=== PATIENT | female | born 1935 | race Caucasian/White ===

== ENCOUNTER 2017-06-17 10:50 | Emergency (ER) | payer OTHER ==
[~2017-06-17] VITALS: Ht 157.5 cm; Wt 72.0 kg
[~2017-06-17 10:50] MED LIST: ATOR80TA PO; FURO1TAB93 PO; LEVO88TA21 PO; MAGN500T4 PO; OMEP20CA5 PO; PLAV75TA PO; POTA-267 PO
[2017-06-17 11:05] VITALS: BP 163/90; PULSE 101; RESP 20; TEMP 98; O2SAT 18
[2017-06-17 11:08] VITALS: RESP 20; O2SAT 97
[2017-06-17] MEDS ORDERED: methylPREDNISolone SOD SUCC 125 MG/2 ML VIAL IVP ONE (11:30)
[2017-06-17] MEDS ORDERED: OMEP20TA PO (11:35)
[2017-06-17] MEDS ORDERED: SIMV80TA PO (11:35)
[2017-06-17] MEDS ORDERED: LEVO75TA3 PO (11:35)
[2017-06-17] MEDS ORDERED: FISH1000 PO (11:35)
[2017-06-17] MEDS: RESP: ALBUTEROL 2.5 MG/IPRATROPIUM 0.5 MG NEB (SCH) INH ×2 (11:35→11:36)
[2017-06-17] MEDS ORDERED: POTA-243 PO (11:35)
[2017-06-17] MEDS ORDERED: CALC600T64 PO (11:35)
--- NOTE | 2017-06-17 11:35 | PD ---
HPI Chief Complaint: Respiratory Symptoms Time Seen by Provider: 11:15 Travel History International Travel<30 days: No Contact w/Intl Traveler<30days: No Traveled to known affect area: No History of Present Illness HPI Patient is an 82-year-old female with history of COPD, hyperlipidemia, diabetes , TIAs currently on Xarelto, presents to the ER with complaints of shortness of breath. Patient reports that for the past week, she's been short of breath at rest as well as exertion. Patient reports that she tried taking her albuterol treatments with minimal relief of symptoms. She denies any fevers or chills. Reports that she has had a nonproductive cough. Patient denies chest pain at this time. Patient denies any sick contacts, denies any recent travels or trips. PFSH Past Medical History Arthritis: Yes Depression: Yes Cardiovascular Problems: Yes (AK x 1) High Cholesterol: Yes Chest Pain: Yes Congestive Heart Failure: No (???) COPD: Yes Cerebrovascular Accident: Yes (tia's) Diabetes: Yes (states hx of this but no at present ) Patient Takes Glucophage: No Diminished Hearing: Yes GERD: Yes Medical other: Yes (chronic neck,back and right arm) Respiratory: Yes (copd) Myocardial Infarction: Yes (x1) Thyroid Disease: Yes Tetanus Vaccination: > 5 Years Influenza Vaccination: No ?: Not Menopausal: Yes Past Surgical History Appendectomy: Yes Hysterectomy: Yes Tonsillectomy: Yes Social History Alcohol Use: Yes (occas beer) Tobacco Use: No Substance Use: No Allergies-Medications (Allergen,Severity, Reaction): Coded Allergies: aspirin (Unverified Allergy, Severe, HIVES, 06/17/17) Reported Meds & Prescriptions Reported Meds & Active Scripts Active Proair Hfa 8.5 GM Inh (Albuterol Sulfate) 90 Mcg/Act Aer 2 Puff INH Q4-6H PRN 108 mcg/actuation Prednisone 20 Mg Tab 20 Mg PO BID 5 Days Reported Advair Diskus Inh (Fluticasone-Salmeterol Inh) 100-50 Mcg/Blist Aer 1 Puff INH BID Rinse mouth after use. Xarelto (Rivaroxaban) 20 Mg Tab 20 Mg PO DAILY Fish Oil ([place]-3 Fatty Acids) 1,000 Mg Cap 1 Cap PO DAILY Calcium 600 + Vit D Tablet (Calcium Carbonate/Vitamin D3) 1 Each Tablet 1 Tab PO DAILY Simvastatin 80 Mg Tab 80 Mg PO DAILY Omeprazole 20 Mg Tab 20 Mg PO DAILY Levothyroxine (Levothyroxine Sodium) 75 Mcg Tab 75 Mcg PO DAILY Klor-Con 10 (Potassium Chloride) Unknown Strength Tab Unknown Dose PO DAILY Review of Systems General / Constitutional: No: Fever, Chills Eyes: No: Visual changes HENT: No: Headaches, Vertigo, Lightheadedness, Sore Throat Cardiovascular: No: Chest Pain or Discomfort, Palpitations, Irregular Rhythm, Tachycardia, Diaphoresis Respiratory: Positive: Cough, Shortness of Breath, No: Wheezing Gastrointestinal: No: Abdominal Pain Genitourinary: No: Dysuria Musculoskeletal: No: Pain Skin: No Rash Neurologic: No: Weakness, Dizziness, Headache Psychiatric: No: Depression Endocrine: No: Polydipsia Hematologic/Lymphatic: No: Easy Bruising Physical Exam Narrative GENERAL: No acute distress, nontoxic SKIN: Focused skin assessment warm/dry. HEAD: Atraumatic. Normocephalic. EYES: Pupils equal and round. No scleral icterus. No injection or drainage. ENT: No nasal bleeding or discharge. Mucous membranes pink and moist. NECK: Trachea midline. No JVD. CARDIOVASCULAR: irregular rate and rhythm. No murmur appreciated. RESPIRATORY: No accessory muscle use. Clear to auscultation. Breath sounds equal bilaterally. GASTROINTESTINAL: Abdomen soft, non-tender, nondistended. Hepatic and splenic margins not palpable. MUSCULOSKELETAL: No obvious deformities. No clubbing. No cyanosis. No edema. NEUROLOGICAL: Awake and alert. No obvious cranial nerve deficits. Motor grossly within normal limits. Normal speech. PSYCHIATRIC: Appropriate mood and affect; insight and judgment normal. Data Data Last Documented VS Vital Signs Date Time Temp Pulse Resp B/P Pulse Ox O2 Delivery O2 Flow Rate FiO2 06/17/17 13:02 73 18 96 Room Air 06/17/17 12:10 150/75 06/17/17 11:05 98.0 Orders Complete Blood Count With Diff (06/17/17 11:28) Comprehensive Metabolic Panel (06/17/17 11:28) B-Type Natriuretic Peptide (06/17/17 11:28) Act Partial Throm Time (Ptt) (06/17/17 11:28) Prothrombin Time / Inr (Pt) (06/17/17 11:28) Magnesium (Mg) (06/17/17 11:28) Ckmb (Isoenzyme) Profile (06/17/17 11:28) Troponin I (06/17/17 11:28) Urinalysis - C+S If Indicated (06/17/17 11:28) Iv Access Insert/Monitor (06/17/17 11:28) Ecg Monitoring (06/17/17 11:28) Oximetry (06/17/17 11:28) Chest, Single Ap (06/17/17 11:28) Sodium Chloride 0.9% Flush (Ns Flush) (06/17/17 11:30) Methylprednisolone So Succ Inj (Solumedr (06/17/17 11:30) Albuterol-Ipratropium Neb (Duoneb Neb) (06/17/17 11:30) CKMB (06/17/17 12:00) CKMB% (06/17/17 12:00) Furosemide Inj (Lasix Inj) (06/17/17 13:30) Labs Laboratory Tests Test 06/17/17 06/17/17 12:00 12:50 White Blood Count 8.8 TH/MM3 Red Blood Count 3.55 MIL/MM3 Hemoglobin 11.8 GM/DL Hematocrit 34.6 % Mean Corpuscular Volume 97.2 FL Mean Corpuscular Hemoglobin 33.1 PG Mean Corpuscular Hemoglobin 34.1 % Concent Red Cell Distribution Width 14.3 % Platelet Count 206 TH/MM3 Mean Platelet Volume 7.5 FL Neutrophils (%) (Auto) 75.7 % Lymphocytes (%) (Auto) 11.3 % Monocytes (%) (Auto) 11.1 % Eosinophils (%) (Auto) 1.6 % Basophils (%) (Auto) 0.3 % Neutrophils # (Auto) 6.7 TH/MM3 Lymphocytes # (Auto) 1.0 TH/MM3 Monocytes # (Auto) 1.0 TH/MM3 Eosinophils # (Auto) 0.1 TH/MM3 Basophils # (Auto) 0.0 TH/MM3 CBC Comment DIFF FINAL Differential Comment Prothrombin Time 12.0 SEC Prothromb Time International 1.1 RATIO Ratio Activated Partial 28.9 SEC Thromboplast Time Sodium Level 135 MEQ/L Potassium Level 5.5 MEQ/L Chloride Level 100 MEQ/L Carbon Dioxide Level 28.1 MEQ/L Anion Gap 7 MEQ/L Blood Urea Nitrogen 16 MG/DL Creatinine 0.85 MG/DL Estimat Glomerular Filtration 64 ML/MIN Rate Random Glucose 131 MG/DL Calcium Level 9.5 MG/DL Magnesium Level 2.0 MG/DL Total Bilirubin 0.8 MG/DL Aspartate Amino Transf 51 U/L (AST/SGOT) Alanine Aminotransferase 32 U/L (ALT/SGPT) Alkaline Phosphatase 70 U/L Total Creatine Kinase 170 U/L Creatine Kinase MB 2.8 NG/ML Troponin I LESS THAN 0.02 NG/ML B-Type Natriuretic Peptide 160 PG/ML Total Protein 7.4 GM/DL Albumin 3.7 GM/DL Urine Collection Type CLEAN CATCH Urine Color YELLOW Urine Turbidity CLEAR Urine pH 6.5 Urine Specific [place] 1.010 Urine Protein TRACE mg/dL Urine Glucose (UA) NEG mg/dL Urine Ketones NEG mg/dL Urine Occult Blood SMALL Urine Nitrite NEG Urine Bilirubin NEG Urine Leukocyte Esterase NEG Urine RBC 4-9 /hpf Urine Squamous Epithelial 0-5 /hpf Cells Microscopic Urinalysis Comment CULT NOT INDICATED Urine Collection Time 12:50 [facility] Medical Decision Making Medical Screen Exam Complete: Yes Emergency Medical Condition: Yes Interpretation(s) EKG at 1109: Afib at 105bpm, qt/qtc: 347/408, no acute st or t wave changes Vital Signs Date Time Temp Pulse Resp B/P Pulse Ox O2 Delivery O2 Flow Rate FiO2 06/17/17 11:14 100 20 96 Room Air 06/17/17 11:05 98.0 101 20 163/90 18 Differential Diagnosis Differential includes ACS, arrhythmia, PE, COPD exacerbation, pneumonia, electrolyte abnormality, viral syndrome Narrative Course Patient is an 82-year-old female who presents to emergency room complaints of shortness of breath for the past week. She does have history of TIAs, COPD's, AK x 1, reports that she has been sob at rest as well as on exertion for the past week. She tried using her neb treatments with no relief of symptoms. VSS in the ER. Patient with no chest pain at this time - ekg shows afib at 105bpm. Patient was placed on a bus driver/monitor upon arrival to the emergency room. Lab work including x-ray chest as well as neb treatment ordered. Vital Signs Date Time Temp Pulse Resp B/P Pulse Ox O2 Delivery O2 Flow Rate FiO2 06/17/17 13:02 73 18 96 Room Air 06/17/17 12:10 70 18 150/75 96 Room Air 06/17/17 11:14 100 20 96 Room Air 06/17/17 11:08 20 97 Room Air 06/17/17 11:05 98.0 101 20 163/90 18 Laboratory Tests Test 06/17/17 06/17/17 12:00 12:50 White Blood Count 8.8 TH/MM3 (4.0-11.0) Red Blood Count 3.55 MIL/MM3 (4.00-5.30) Hemoglobin 11.8 GM/DL (11.6-15.3) Hematocrit 34.6 % (35.0-46.0) Mean Corpuscular Volume 97.2 FL (80.0-100.0) Mean Corpuscular Hemoglobin 33.1 PG (27.0-34.0) Mean Corpuscular Hemoglobin 34.1 % Concent (32.0-36.0) Red Cell Distribution Width 14.3 % (11.6-17.2) Platelet Count 206 TH/MM3 (150-450) Mean Platelet Volume 7.5 FL (7.0-11.0) Neutrophils (%) (Auto) 75.7 % (16.0-70.0) Lymphocytes (%) (Auto) 11.3 % (9.0-44.0) Monocytes (%) (Auto) 11.1 % (0.0-8.0) Eosinophils (%) (Auto) 1.6 % (0.0-4.0) Basophils (%) (Auto) 0.3 % (0.0-2.0) Neutrophils # (Auto) 6.7 TH/MM3 (1.8-7.7) Lymphocytes # (Auto) 1.0 TH/MM3 (1.0-4.8) Monocytes # (Auto) 1.0 TH/MM3 (0-0.9) Eosinophils # (Auto) 0.1 TH/MM3 (0-0.4) Basophils # (Auto) 0.0 TH/MM3 (0-0.2) CBC Comment DIFF FINAL Differential Comment Prothrombin Time 12.0 SEC (9.8-11.6) Prothromb Time International 1.1 RATIO Ratio Activated Partial 28.9 SEC Thromboplast Time (24.3-30.1) Sodium Level 135 MEQ/L (136-145) Potassium Level 5.5 MEQ/L (3.5-5.1) Chloride Level 100 MEQ/L (98-107) Carbon Dioxide Level 28.1 MEQ/L (21.0-32.0) Anion Gap 7 MEQ/L (5-15) Blood Urea Nitrogen 16 MG/DL (7-18) Creatinine 0.85 MG/DL (0.50-1.00) Estimat Glomerular Filtration 64 ML/MIN (>89) Rate Random Glucose 131 MG/DL (74-106) Calcium Level 9.5 MG/DL (8.5-10.1) Magnesium Level 2.0 MG/DL (1.5-2.5) Total Bilirubin 0.8 MG/DL (0.2-1.0) Aspartate Amino Transf 51 U/L (15-37) (AST/SGOT) Alanine Aminotransferase 32 U/L (10-53) (ALT/SGPT) Alkaline Phosphatase 70 U/L (45-117) Total Creatine Kinase 170 U/L (26-192) Creatine Kinase MB 2.8 NG/ML (0.5-3.6) Troponin I LESS THAN 0.02 NG/ML (0.02-0.05) B-Type Natriuretic Peptide 160 PG/ML (0-100) Total Protein 7.4 GM/DL (6.4-8.2) Albumin 3.7 GM/DL (3.4-5.0) Urine Collection Type CLEAN CATCH Urine Color YELLOW (YELLW/STRAW) Urine Turbidity CLEAR (CLEAR) Urine pH 6.5 (5.0-8.5) Urine Specific [place] 1.010 (1.002-1.035) Urine Protein TRACE mg/dL (NEG-TRACE) Urine Glucose (UA) NEG mg/dL (NEG) Urine Ketones NEG mg/dL (NEG) Urine Occult Blood SMALL (NEG) Urine Nitrite NEG (NEG) Urine Bilirubin NEG (NEG) Urine Leukocyte Esterase NEG (NEG) Urine RBC 4-9 /hpf (0-3) Urine Squamous Epithelial 0-5 /hpf (0-5) Cells Microscopic Urinalysis Comment CULT NOT INDICATED Urine Collection Time 12:50 Last Impressions Chest X-Ray 06/17/17 1128 Signed Impressions: Service Date/Time: Saturday, June 17, 2017 11:53 - CONCLUSION: 1. Cardiomegaly, small right effusion and interstitial prominence suggesting congestive failure. This is new compared to previous. Al Sadler MD Labs reviewed, WBC 8.8, hemoglobin 11.8, hematocrit 34.6, platelets 206 Sodium 135, potassium 5.5, BUN 16, creatinine 0.85, glucose 131, AST 51, ALT 32 , alkaline phosphatase 70, troponin less than 0.02, BNP 160 X-ray of the chest shows cardiomegaly with small right effusion and some prominence of CHF Patient has received IV solumedrol as well as 2 DuoNeb's, patient reports that she is feeling much better and has complete resolution of symptoms. She reports that she was able to walk to the bathroom without any shortness of breath. Patient requests to be discharged at this time. I reviewed all labs and all studies with patient in detail. Signs and symptoms of when to return to the emergency room was reviewed with her in detail. She is to continue all of her medications as prescribed as outpatient. She will follow up with her primary care doctor and will return to ER as needed. Diagnosis Primary Impression: COPD exacerbation Patient Instructions: General Instructions Additional Instructions: Please follow up with your primary care doctor Return to ER if symptoms worsen or progress Return to ER as needed Please take all medications as prescribed Med/Other Pt SpecificInfo: Prescription(s) given Scripts Albuterol 8.5 GM Inh (Proair Hfa 8.5 GM Inh)90 Mcg/Act Aer2 Puff INH Q4-6H PRN ( SHORTNESS OF BREATH) #1 INHALER Ref 0 108 mcg/actuation Prov:Soni Singh DO 06/17/17 Prednisone 20 Mg Tab20 Mg PO BID 5 Days Ref 0 Prov:Soni Singh DO 06/17/17 Disposition: 01 DISCHARGE HOME Condition: Stable Soni Singh DO Jun 17, 2017 11:34
[2017-06-17] MEDS ORDERED: XARE20TA PO (11:37)
[2017-06-17] MEDS ORDERED: ADVA100A INH (11:38)
--- NOTE | 2017-06-17 12:08 | RADRPT ---
EXAM DATE/TIME: 06/17/2017 11:53 [facility] COMPARISON: CHEST SINGLE AP, November 22, 2015, 0:01. INDICATIONS : Short of breath. MEDICAL HISTORY : Myocardial infarction. Gastroesophageal reflux disease. Hypercholesterolemia. COPD. Thyroid disea se. TIA. CHF, Arthritis. SURGICAL HISTORY : Tonsillectomy. Appendectomy. Hysterectomy. ENCOUNTER: Initial ACUITY: 1 week PAIN SCORE: 0/10 LOCATION: chest FINDINGS: The examination demonstrates a heart to be mildly enlarged. There is a small right basilar effusion a nd diffuse interstitial prominence. The exam would suggest mild congestive failure. These findings ar e new compared to the previous dated 11/22/15. There degenerative changes in the a.c. joints bilaterally. The osseous structures are otherwise intac t. CONCLUSION: 1. Cardiomegaly, small right effusion and interstitial prominence suggesting congestive failure. This is new compared to previous. Al Sadler MD on June 17, 2017 at 12:05 Board Certified Radiologist. This report was verified electronically.
[2017-06-17 12:10] VITALS: BP 150/75; PULSE 70; RESP 18; O2SAT 96
[2017-06-17 12:10] LABS: AUTOMATED NEUTROPHIL # 6.7 TH/MM3 (1.8-7.7); BASOPHIL % 0.3 % (0.0-2.0); EOSINOPHIL # 0.1 TH/MM3 (0-0.4); EOSINOPHIL % 1.6 % (0.0-4.0); HEMATOCRIT 34.6 % (35.0-46.0); HEMO FLAGS DIFF FINAL; LYMPH % 11.3 % (9.0-44.0); MEAN CELL VOLUME 97.2 FL (80.0-100.0); MEAN CORPUSCULAR HEMOGLOBIN 33.1 PG (27.0-34.0); MEAN CORPUSCULAR HGB CONC 34.1 % (32.0-36.0); MONO % 11.1 % (0.0-8.0); NEUT % 75.7 % (16.0-70.0); PLATELET COUNT 206 TH/MM3 (150-450); RED BLOOD COUNT 3.55 MIL/MM3 (4.00-5.30); RED CELL DISTRIBUTION WIDTH 14.3 % (11.6-17.2); WHITE BLOOD COUNT 8.8 TH/MM3 (4.0-11.0)
[2017-06-17 12:21] LABS: CHLORIDE 100 MEQ/L (98-107); POTASSIUM 5.5 MEQ/L (3.5-5.1); SODIUM (NA) 135 MEQ/L (136-145)
[2017-06-17] MEDS: SODIUM CHLORIDE 0.9% FLUSH 10 ML FLUSH IVF PRN ×2 (12:21→13:33)
[2017-06-17 12:25] LABS: APTT (PATIENT) 28.9 SEC (24.3-30.1); INTERNATIONAL NORMALIZED RATIO 1.1 RATIO
[2017-06-17 12:28] LABS: ANION GAP 7 MEQ/L (5-15); BICARBONATE 28.1 MEQ/L (21.0-32.0)
[2017-06-17 12:29] LABS: BLOOD UREA NITROGEN 16 MG/DL (7-18)
[2017-06-17 12:31] LABS: AST (GOT) 51 U/L (15-37)
[2017-06-17 12:32] LABS: ALT (GPT) 32 U/L (10-53); GLOMERULAR FILTRATION RATE 64 ML/MIN (>89); TOTAL BILIRUBIN ADULT 0.8 MG/DL (0.2-1.0)
[2017-06-17 12:34] LABS: ALKALINE PHOSPHATASE 70 U/L (45-117); CREATINE KINASE 170 U/L (26-192)
[2017-06-17 12:46] LABS: CKMB 2.8 NG/ML (0.5-3.6)
[2017-06-17 12:58] LABS: BLOOD, URINE SMALL (NEG); GLUCOSE,URINE NEG (NEG); KETONE, URINE NEG (NEG); NITRITE,URINE NEG (NEG); PH, URINE 6.5 (5.0-8.5)
[2017-06-17 13:04] LABS: COMMENT (UR) CULT NOT INDICATED; CULTURE IF INDICATED CULT NOT INDICATED; METHOD OF COLLECTION CLEAN CATCH; SQUAMOUS EPITHELIAL CELL URINE 0-5 /hpf (0-5); URINE COLOR YELLOW (YELLW/STRAW)
[2017-06-17] MEDS ORDERED: FUROSEMIDE 40 MG/4 ML VIAL IV PUSH ONE (13:30)
[2017-06-17] MEDS ORDERED: PRED20 PO (13:40)
[2017-06-17] MEDS ORDERED: ALBUAER3 INH (13:40)
[2017-06-17 13:50] VITALS: BP 147/73
--- NOTE | 2017-06-19 09:15 | EKG ---
Date Performed: 06/17/2017 Time Performed: 11:09:49 PTAGE: 82 years EKG: ATRIAL FLUTTER/TACHYCARDIA WITH RAPID VENTRICULAR RESPONSE LOW QRS VOLTAGE IN PRECORDIAL LE ADS ABNORMAL RHYTHM ECG INTERPRETATION BASED ON A DEFAULT AGE OF 40 YEARS Compared to the PREVIOUS TRACING from 11/22/15, previously in sinus tachycardia DOCTOR: Hossein Long Interpretating Date/Time 06/19/2017 09:05:23
== END 2017-06-17 13:57 | disposition home or self-care (01) ==
LOC: PHED 10:50
DX: J44.1 Chronic obstructive pulmonary disease with (acute) exacerbation (principal); I51.7 Cardiomegaly; H91.90 Unspecified hearing loss, unspecified ear; K21.9 Gastro-esophageal reflux disease without esophagitis; I25.2 Old myocardial infarction; E78.5 Hyperlipidemia, unspecified; E11.9 Type 2 diabetes mellitus without complications; Z86.73 Personal history of transient ischemic attack (TIA), and cerebral infarction without residual deficits; R00.0 Tachycardia, unspecified
CPT/HCPCS: 71010; 80053; 81001; 82550; 82552; 83735; 83880; 84484; 85025; 85610; 85730; 93005; 94640; 94664; 96374; 96375; 99285; J1940; J2930

== ENCOUNTER 2017-11-12 11:19 | Emergency (ER) | payer OTHER ==
[~2017-11-12] VITALS: Ht 157.5 cm; Wt 66.0 kg
[~2017-11-12 11:19] MED LIST changes: +ADVA100A INH; +ALBUAER3 INH; -ATOR80TA PO; +CALC600T64 PO; +FISH1000 PO; -FURO1TAB93 PO; +KLOR10TA PO; +LEVO75TA3 PO; -LEVO88TA21 PO; -MAGN500T4 PO; -OMEP20CA5 PO; +OMEP20TA93 PO; -PLAV75TA PO; -POTA-267 PO; +PRED20 PO; +SIMV80TA PO; +XARE20TA PO
[2017-11-12 11:25] VITALS: BP 133/82; PULSE 80; RESP 14; TEMP 97.8; O2SAT 94
--- NOTE | 2017-11-12 11:42 | PD ---
HPI Chief Complaint: General Weakness Time Seen by Provider: 11:30 Travel History International Travel<30 days: No Contact w/Intl Traveler<30days: No Traveled to known affect area: No History of Present Illness HPI The patient was seen and examined in the presence of the nurse. This patient complains of bilateral leg weakness and leg pain. These seem to be chronic symptoms she's had for years. She's had a wheelchair at home for the last 3-4 years. She also has a walker. She always needs a walker to help get to a standing position and then sometime she can walk short distances without it and other times days the walker. She has fibromyalgia. She denies acute injury. No specific muscle group weakness. It's more generalized. Denies speech slurring or confusion or headache. Severity is moderate. No alleviating factors. No exacerbating factors. Duration is years but symptoms seem to wax and wane in terms of her pains and weakness PFSH Past Medical History Arthritis: Yes Depression: Yes Cardiovascular Problems: Yes ([place] x 1) High Cholesterol: Yes Chest Pain: Yes Congestive Heart Failure: No (???) COPD: Yes Cerebrovascular Accident: Yes (tia's) Diabetes: Yes Patient Takes Glucophage: No Diminished Hearing: Yes GERD: Yes Respiratory: Yes (copd) Myocardial Infarction: Yes (x1) Thyroid Disease: Yes Tetanus Vaccination: > 5 Years Influenza Vaccination: No ?: Not Menopausal: Yes Past Surgical History Appendectomy: Yes Hysterectomy: Yes Tonsillectomy: Yes Social History Alcohol Use: Yes ("Couple beers" daily) Tobacco Use: No Substance Use: No Allergies-Medications (Allergen,Severity, Reaction): Coded Allergies: aspirin (Unverified Allergy, Severe, HIVES, 11/12/17) Reported Meds & Prescriptions Reported Meds & Active Scripts Active Proair Hfa 8.5 GM Inh (Albuterol Sulfate) 90 Mcg/Act Aer 2 Puff INH Q4-6H PRN 108 mcg/actuation Reported Gabapentin 100 Mg Cap 100 Mg PO HS Lyrica (Pregabalin) 50 Mg Cap 50 Mg PO DIRECTED Tramadol (Tramadol HCl) 50 Mg Tab 50 Mg PO BID PRN Sertraline (Sertraline HCl) 25 Mg Tab 25 Mg PO DAILY Lipitor (Atorvastatin Calcium) 80 Mg Tab 80 Mg PO HS Indomethacin 25 Mg Cap 25 Mg PO DIRECTED Take with food, milk, or antacids to decrease stomach adverse effects. Advair Diskus Inh (Fluticasone-Salmeterol Inh) 100-50 Mcg/Blist Aer 1 Puff INH BID PRN Rinse mouth after use. Xarelto (Rivaroxaban) 20 Mg Tab 20 Mg PO DAILY Omeprazole 20 Mg Tab 20 Mg PO DAILY Levothyroxine (Levothyroxine Sodium) 75 Mcg Tab 50 Mcg PO DAILY Review of Systems General / Constitutional: No: Fever Eyes: No: Visual changes HENT: No: Headaches Cardiovascular: No: Chest Pain or Discomfort Respiratory: No: Shortness of Breath Gastrointestinal: No: Abdominal Pain Genitourinary: No: Dysuria Musculoskeletal: Positive: Myalgias, Arthralgias, Weakness, Cramping, No: Pain Skin: No Rash Neurologic: Positive: Weakness Psychiatric: No: Depression Endocrine: No: Polydipsia Hematologic/Lymphatic: No: Easy Bruising Physical Exam Narrative GENERAL: Elderly well-developed patient in no apparent distress. SKIN: Focused skin assessment reveals no rash and nodules. Skin is Warm and dry. HEAD: Atraumatic. Normocephalic. EYES: Pupils equal and round. No scleral icterus. No injection or drainage. ENT: No nasal bleeding or discharge. Mucous membranes pink and moist. NECK: Trachea midline. No JVD. CARDIOVASCULAR: Regular rate and rhythm. No murmur appreciated. RESPIRATORY: No accessory muscle use. Clear to auscultation. Breath sounds equal bilaterally. GASTROINTESTINAL: Abdomen soft, non-tender, nondistended. Hepatic and splenic margins not palpable. MUSCULOSKELETAL: No obvious deformities. No clubbing. No cyanosis. No edema. NEUROLOGICAL: Awake and alert. No obvious cranial nerve deficits. Motor grossly within normal limits. Normal speech. PSYCHIATRIC: Appropriate mood and affect; insight and judgment normal. Data Data Last Documented VS Vital Signs Date Time Temp Pulse Resp B/P (MAP) Pulse Ox O2 Delivery O2 Flow Rate FiO2 11/12/17 11:25 97.8 80 14 133/82 (99) 94 Orders Orders Iv Access Insert/Monitor (11/12/17 11:39) Complete Blood Count With Diff (11/12/17 11:39) Comprehensive Metabolic Panel (11/12/17 11:39) Urinalysis - C+S If Indicated (11/12/17 11:39) Thyroid Stimulating Hormone (11/12/17 11:39) Cath For Specimen (11/12/17 11:39) Labs Laboratory Tests Test 11/12/17 11:50 11/12/17 11:55 White Blood Count 9.3 TH/MM3 Red Blood Count 4.43 MIL/MM3 Hemoglobin 13.4 GM/DL Hematocrit 41.8 % Mean Corpuscular Volume 94.5 FL Mean Corpuscular Hemoglobin 30.4 PG Mean Corpuscular Hemoglobin Concent 32.1 % Red Cell Distribution Width 15.4 % Platelet Count 218 TH/MM3 Mean Platelet Volume 6.7 FL Neutrophils (%) (Auto) 77.8 % Lymphocytes (%) (Auto) 8.9 % Monocytes (%) (Auto) 12.3 % Eosinophils (%) (Auto) 0.7 % Basophils (%) (Auto) 0.3 % Neutrophils # (Auto) 7.3 TH/MM3 Lymphocytes # (Auto) 0.8 TH/MM3 Monocytes # (Auto) 1.1 TH/MM3 Eosinophils # (Auto) 0.1 TH/MM3 Basophils # (Auto) 0.0 TH/MM3 CBC Comment DIFF FINAL Differential Comment Blood Urea Nitrogen 23 MG/DL Creatinine 1.10 MG/DL Random Glucose 161 MG/DL Total Protein 7.2 GM/DL Albumin 3.8 GM/DL Calcium Level 9.8 MG/DL Alkaline Phosphatase 59 U/L Aspartate Amino Transf (AST/SGOT) 43 U/L Alanine Aminotransferase (ALT/SGPT) 39 U/L Total Bilirubin 1.0 MG/DL Sodium Level 130 MEQ/L Potassium Level 3.3 MEQ/L Chloride Level 92 MEQ/L Carbon Dioxide Level 30.7 MEQ/L Anion Gap 7 MEQ/L Estimat Glomerular Filtration Rate 48 ML/MIN Thyroid Stimulating Hormone 3rd Gen 1.690 uIU/ML Urine Collection Type CLEAN CATCH Urine Color YELLOW Urine Turbidity SLIGHT Urine pH 6.0 Urine Specific [place] 1.020 Urine Protein 100 mg/dL Urine Glucose (UA) NEG mg/dL Urine Ketones TRACE mg/dL Urine Occult Blood MOD Urine Nitrite NEG Urine Bilirubin NEG Urine Leukocyte Esterase NEG Urine RBC 10-14 /hpf Urine WBC 0-2 /hpf Urine Squamous Epithelial Cells 0-5 /hpf Urine Amorphous Sediment FEW Urine Bacteria OCC /hpf Urine Hyaline Casts 25-49 /lpf Microscopic Urinalysis Comment CULT NOT INDICATED Urine Collection Time 11:55 [facility] Medical Decision Making Medical Screen Exam Complete: Yes Emergency Medical Condition: Yes Medical Record Reviewed: Yes Differential Diagnosis Electrolyte abnormality, UTI, fibromyalgia, depression, hypothyroid Narrative Course I have reviewed the patient's electronic medical record. Reviewed her prior lab record. She's had a sodium of 129 in 2016 IV placed CBC is normal metabolic profile shows mild hyponatremia and mild hypokalemia. LFT's are normal Catheterized urine shows no pyuria. There is a scant number of RBCs and some hyaline casts I don't see a neurologic deficit. No clinical suspicion of CVA or TIA. Is chronically deconditioned and with weakness and pains. Has never had good gait. Uses both a walker and wheelchair at times for the last 4 years. I don't see any indication for emergent hospitalization. This seems like a flare of a chronic problem. Think she can follow-up with her primary physician. There is no neurologic deficit or concern for CVA. Symptoms seem more generalized. She denies back pain or back problems. Diagnosis Primary Impression: Generalized weakness Additional Instructions: The patient was advised to follow up with their physician and return if they worsen. Med/Other Pt SpecificInfo: Other Disposition: 01 DISCHARGE HOME Condition: Stable Marshall Krause MD Nov 12, 2017 11:42
[2017-11-12 11:59] LABS: AUTOMATED NEUTROPHIL # 7.3 TH/MM3 (1.8-7.7); BASOPHIL % 0.3 % (0.0-2.0); EOSINOPHIL # 0.1 TH/MM3 (0-0.4); EOSINOPHIL % 0.7 % (0.0-4.0); HEMATOCRIT 41.8 % (35.0-46.0); HEMOGLOBIN 13.4 GM/DL (11.6-15.3); LYMPH % 8.9 % (9.0-44.0); LYMPHOCYTE # 0.8 TH/MM3 (1.0-4.8); MEAN CELL VOLUME 94.5 FL (80.0-100.0); MEAN CORPUSCULAR HEMOGLOBIN 30.4 PG (27.0-34.0); MEAN CORPUSCULAR HGB CONC 32.1 % (32.0-36.0); MEAN PLATELET VOLUME 6.7 FL (7.0-11.0); MONO % 12.3 % (0.0-8.0); MONOCYTE # 1.1 TH/MM3 (0-0.9); NEUT % 77.8 % (16.0-70.0); PLATELET COUNT 218 TH/MM3 (150-450); RED BLOOD COUNT 4.43 MIL/MM3 (4.00-5.30); RED CELL DISTRIBUTION WIDTH 15.4 % (11.6-17.2); WHITE BLOOD COUNT 9.3 TH/MM3 (4.0-11.0)
[2017-11-12 12:03] LABS: BLOOD, URINE MOD (NEG); GLUCOSE,URINE NEG (NEG); KETONE, URINE TRACE mg/dL (NEG); NITRITE,URINE NEG (NEG); URINE LEUKOCYTE ESTERASE NEG (NEG)
[2017-11-12] MEDS ORDERED: SERT25TA83 PO (12:04)
[2017-11-12] MEDS ORDERED: LYRI50CA PO (12:04)
[2017-11-12] MEDS ORDERED: TRAM50TA PO (12:04)
[2017-11-12] MEDS ORDERED: GABA100C4 PO (12:04)
[2017-11-12] MEDS ORDERED: LIPI80TA PO (12:04)
[2017-11-12] MEDS ORDERED: INDO25CA PO (12:04)
[2017-11-12 12:07] LABS: CHLORIDE 92 MEQ/L (98-107); SODIUM (NA) 130 MEQ/L (136-145)
[2017-11-12 12:08] LABS: BILIRUBIN, URINE NEG (NEG)
[2017-11-12 12:09] LABS: URINE COLOR YELLOW (YELLW/STRAW); WBC, URINE 0-2 /hpf (0-5)
[2017-11-12 12:10] LABS: AMORPHOUS SEDIMENT, URINE FEW; BACTERIA, URINE OCC /hpf; SQUAMOUS EPITHELIAL CELL URINE 0-5 /hpf (0-5)
[2017-11-12 12:10] LABS: CALCIUM 9.8 MG/DL (8.5-10.1)
[2017-11-12 12:11] LABS: ALBUMIN 3.8 GM/DL (3.4-5.0); BICARBONATE 30.7 MEQ/L (21.0-32.0); BLOOD UREA NITROGEN 23 MG/DL (7-18); GLUCOSE,RANDOM 161 MG/DL (74-106)
[2017-11-12 12:14] LABS: ALT (GPT) 39 U/L (10-53); AST (GOT) 43 U/L (15-37); GLOMERULAR FILTRATION RATE 48 ML/MIN (>89)
[2017-11-12 12:15] LABS: TOTAL PROTEIN 7.2 GM/DL (6.4-8.2)
[2017-11-12 12:17] LABS: ALKALINE PHOSPHATASE 59 U/L (45-117)
[2017-11-12 13:45] VITALS: BP 178/60; PULSE 82; RESP 14; O2SAT 96
== END 2017-11-12 13:45 | disposition home or self-care (01) ==
LOC: PHED 11:19
DX: R53.1 Weakness (principal); E07.9 Disorder of thyroid, unspecified; E78.00 Pure hypercholesterolemia, unspecified; K21.9 Gastro-esophageal reflux disease without esophagitis; J44.9 Chronic obstructive pulmonary disease, unspecified; I25.2 Old myocardial infarction; M79.7 Fibromyalgia; Z79.01 Long term (current) use of anticoagulants; Z86.73 Personal history of transient ischemic attack (TIA), and cerebral infarction without residual deficits
CPT/HCPCS: 80053; 81001; 84443; 85025; 99283; P9612

== ENCOUNTER 2017-11-14 11:55 | Observation (INO) | payer OTHER ==
[~2017-11-14] VITALS: Ht 167.6 cm; Wt 60.0 kg
[~2017-11-14 11:55] MED LIST changes: -CALC600T64 PO; -FISH1000 PO; +GABA100C4 PO; +INDO25CA PO; -KLOR10TA PO; +LIPI80TA PO; +LYRI50CA PO; -PRED20 PO; +SERT25TA83 PO; -SIMV80TA PO; +TRAM50TA PO
--- NOTE | 2017-11-14 12:13 | PD ---
HPI Chief Complaint: Syncope/Near-Syncope Time Seen by Provider: 12:02 Travel History International Travel<30 days: No Contact w/Intl Traveler<30days: No Traveled to known affect area: No History of Present Illness HPI 82-year-old female presents the emergency department via EMS with reported syncopal episode witnessed by her . Patient has history of generalized weakness and fibromyalgia, and usually uses a walker or wheelchair at home. Reportedly the was trying to get patient up out of her chair, when she had a 2-3 seconds syncopal episode. Patient has had some confusion reported in transport, but denies significant pain, nausea, vomiting, or other constitutional symptoms. She denies headache. At first she felt she was in [place], [place], but now seems oriented. Patient was seen yesterday by Dr. Hutchinson with reports of generalized weakness, without any significant findings. Patient is allergic to aspirin. PFSH Past Medical History Arthritis: Yes Depression: Yes Cardiovascular Problems: Yes ([place] x 1) High Cholesterol: Yes Chest Pain: Yes Congestive Heart Failure: No (???) COPD: Yes Cerebrovascular Accident: Yes (tia's) Diabetes: Yes Diminished Hearing: Yes GERD: Yes Respiratory: Yes (copd) Myocardial Infarction: Yes (x1) Thyroid Disease: Yes Menopausal: Yes Past Surgical History Appendectomy: Yes Hysterectomy: Yes Tonsillectomy: Yes Social History Alcohol Use: Yes ("Couple beers" daily) Tobacco Use: No Substance Use: No Allergies-Medications (Allergen,Severity, Reaction): Coded Allergies: aspirin (Unverified Allergy, Severe, HIVES, 11/12/17) Reported Meds & Prescriptions Reported Meds & Active Scripts Active Proair Hfa 8.5 GM Inh (Albuterol Sulfate) 90 Mcg/Act Aer 2 Puff INH Q4-6H PRN 108 mcg/actuation Reported Gabapentin 100 Mg Cap 100 Mg PO HS Lyrica (Pregabalin) 50 Mg Cap 50 Mg PO DIRECTED Tramadol (Tramadol HCl) 50 Mg Tab 50 Mg PO BID PRN Sertraline (Sertraline HCl) 25 Mg Tab 25 Mg PO DAILY Lipitor (Atorvastatin Calcium) 80 Mg Tab 80 Mg PO HS Indomethacin 25 Mg Cap 25 Mg PO DIRECTED Take with food, milk, or antacids to decrease stomach adverse effects. Advair Diskus Inh (Fluticasone-Salmeterol Inh) 100-50 Mcg/Blist Aer 1 Puff INH BID PRN Rinse mouth after use. Xarelto (Rivaroxaban) 20 Mg Tab 20 Mg PO DAILY Omeprazole 20 Mg Tab 20 Mg PO DAILY Levothyroxine (Levothyroxine Sodium) 75 Mcg Tab 50 Mcg PO DAILY Review of Systems Except as stated in HPI: all other systems reviewed are Neg General / Constitutional: No: Fever Eyes: No: Visual changes HENT: No: Headaches Cardiovascular: No: Chest Pain or Discomfort Respiratory: No: Shortness of Breath Gastrointestinal: No: Abdominal Pain Genitourinary: No: Dysuria Musculoskeletal: Positive: Weakness (generalized), No: Myalgias, Arthralgias, Limited ROM, Pain Skin: No Rash Neurologic: No: Weakness Psychiatric: No: Depression Endocrine: No: Polydipsia Hematologic/Lymphatic: No: Easy Bruising Physical Exam Narrative GENERAL: Patient appears in no obvious distress. She is alert and oriented 3. SKIN: Warm and dry. Normal color. Normal turgor. No rash. HEAD: Atraumatic. Normocephalic. EYES: Pupils equal and round. No scleral icterus. No injection or drainage. ENT: No nasal bleeding or discharge. Mucous membranes pink and moist. Pharynx is clear. Airway is patent. NECK: Trachea midline. No JVD. CARDIOVASCULAR: Tachycardic rate and irregular rhythm. RESPIRATORY: No accessory muscle use. Clear to auscultation. Breath sounds equal bilaterally. GASTROINTESTINAL: Abdomen soft, non-tender, nondistended. Hepatic and splenic margins not palpable. MUSCULOSKELETAL: Extremities without clubbing, cyanosis, or edema. No obvious deformities. NEUROLOGICAL: Awake and alert. No obvious cranial nerve deficits. Motor grossly within normal limits. Five out of 5 muscle strength in the arms and legs. Normal speech. PSYCHIATRIC: Appropriate mood and affect; insight and judgment normal. Data Data Last Documented VS Vital Signs Date Time Temp Pulse Resp B/P (MAP) Pulse Ox O2 Delivery O2 Flow Rate FiO2 11/14/17 12:51 99 18 129/63 (85) 99 18 137/69 (91) 11/14/17 12:27 99 Room Air 11/14/17 12:27 97.5 Orders Orders Electrocardiogram (11/14/17 12:04) Complete Blood Count With Diff (11/14/17 12:04) Comprehensive Metabolic Panel (11/14/17 12:04) Magnesium (Mg) (11/14/17 12:04) Ckmb (Isoenzyme) Profile (11/14/17 12:04) Troponin I (11/14/17 12:04) Act Partial Throm Time (Ptt) (11/14/17 12:04) Prothrombin Time / Inr (Pt) (11/14/17 12:04) Urinalysis - C+S If Indicated (11/14/17 12:04) Chest, Single Ap (11/14/17 12:04) Ct Brain W/O Iv Contrast(Rout) (11/14/17 12:04) Ecg Monitoring (11/14/17 12:04) Iv Access Insert/Monitor (11/14/17 12:04) Oximetry (11/14/17 12:04) Sodium Chloride 0.9% Flush (Ns Flush) (11/14/17 12:15) Orthostatic Vital Signs (11/14/17 12:04) Sodium Chlorid 0.9% 500 Ml Inj (Ns 500 M (11/14/17 12:15) Cath For Specimen (11/14/17 12:04) Potassium Chloride (Kcl) (11/14/17 13:30) CKMB (11/14/17 12:24) CKMB% (11/14/17 12:24) Labs Laboratory Tests Test 11/14/17 12:24 11/14/17 13:12 White Blood Count 11.3 TH/MM3 Red Blood Count 4.53 MIL/MM3 Hemoglobin 14.4 GM/DL Hematocrit 43.1 % Mean Corpuscular Volume 95.1 FL Mean Corpuscular Hemoglobin 31.8 PG Mean Corpuscular Hemoglobin Concent 33.4 % Red Cell Distribution Width 16.1 % Platelet Count 225 TH/MM3 Mean Platelet Volume 7.6 FL Neutrophils (%) (Auto) 76.9 % Lymphocytes (%) (Auto) 10.3 % Monocytes (%) (Auto) 11.5 % Eosinophils (%) (Auto) 1.0 % Basophils (%) (Auto) 0.3 % Neutrophils # (Auto) 8.7 TH/MM3 Lymphocytes # (Auto) 1.2 TH/MM3 Monocytes # (Auto) 1.3 TH/MM3 Eosinophils # (Auto) 0.1 TH/MM3 Basophils # (Auto) 0.0 TH/MM3 CBC Comment DIFF FINAL Differential Comment Prothrombin Time 11.3 SEC Prothromb Time International Ratio 1.1 RATIO Activated Partial Thromboplast Time 24.8 SEC Blood Urea Nitrogen 17 MG/DL Creatinine 1.09 MG/DL Random Glucose 152 MG/DL Total Protein 7.8 GM/DL Albumin 4.1 GM/DL Calcium Level 9.9 MG/DL Magnesium Level 1.8 MG/DL Alkaline Phosphatase 65 U/L Aspartate Amino Transf (AST/SGOT) 33 U/L Alanine Aminotransferase (ALT/SGPT) 36 U/L Total Bilirubin 0.9 MG/DL Sodium Level 134 MEQ/L Potassium Level 3.2 MEQ/L Chloride Level 94 MEQ/L Carbon Dioxide Level 28.2 MEQ/L Anion Gap 12 MEQ/L Estimat Glomerular Filtration Rate 48 ML/MIN Total Creatine Kinase 150 U/L Creatine Kinase MB 2.4 NG/ML Troponin I LESS THAN 0.02 NG/ML Urine Color YELLOW Urine Turbidity CLEAR Urine pH 7.5 Urine Specific [place] 1.008 Urine Protein 30 mg/dL Urine Glucose (UA) NEG mg/dL Urine Ketones 10 mg/dL Urine Occult Blood NEG Urine Nitrite NEG Urine Bilirubin NEG Urine Urobilinogen LESS THAN 2.0 MG/DL Urine Leukocyte Esterase NEG Urine RBC 2 /hpf Urine WBC 1 /hpf Urine Squamous Epithelial Cells 1 /hpf Urine Hyaline Casts 3 /lpf Urine Mucus FEW /lpf Microscopic Urinalysis Comment CATH-CULT NOT IND MDM Medical Decision Making Medical Screen Exam Complete: Yes Emergency Medical Condition: Yes Medical Record Reviewed: Yes Differential Diagnosis Syncopal episode. Generalized weakness. Electrolyte imbalance. TIA. Possible psychiatric issue. Narrative Course Patient appears medically stable at time of exam. EKG shows atrial fibrillation with RVR rate of 109. This is documented in the patient previously. Labs ordered including CBC, CMP, cardiac panel, urinalysis, PT PTT and INR. CT scan as well as chest x-ray is ordered. Orthostatics are ordered. Patient is symptomatically dizzy without change in her vital signs. CT scan is unremarkable. Chest x-ray is unremarkable. CBC is unremarkable. CMP shows sodium 134, potassium 3.2, creatinine is 1.09, GFR is 58, glucose is 152, first troponin is 0.02. Patient is given 30 mEq of potassium by mouth. Call is placed to the hospitalist for admission for her syncopal episode, orthostatic dizziness, hypokalemia, and chronic A. fib with RVR. I feel this patient warrants observation as she was seen yesterday sent home and came back with syncopal episode. Diagnosis Primary Impression: Syncope Qualified Codes: R55 - Syncope and collapse Additional Impressions: Chronic atrial fibrillation with RVR Orthostatic dizziness Hypokalemia Admitting Information Admitting Physician Requests: Observation Condition: Stable Chencho Rehman Nov 14, 2017 12:13
[2017-11-14] MEDS ORDERED: SODIUM CHLORID 0.9% 500 ML INJ 500 ML IV ONE (12:15)
[2017-11-14] MEDS ORDERED: SODIUM CHLORIDE 0.9% FLUSH 10 ML FLUSH IVF PRN (12:15)
[2017-11-14 12:26] VITALS: RESP 18; O2SAT 99
[2017-11-14 12:27] VITALS: BP 132/57; PULSE 116; RESP 18; TEMP 97.5; O2SAT 99
--- NOTE | 2017-11-14 12:38 | RADRPT ---
EXAM DATE/TIME: 11/14/2017 12:17 [facility] COMPARISON: CHEST SINGLE AP, June 17, 2017, 11:53. INDICATIONS : Syncope today. MEDICAL HISTORY : Chronic obstructive pulmonary disease. atrial fibrillation SURGICAL HISTORY : None. ENCOUNTER: Initial ACUITY: 1 day PAIN SCORE: 0/10 LOCATION: Bilateral chest FINDINGS: A single view of the chest demonstrates the lungs to be symmetrically aerated without evidence of mas s, infiltrate or effusion. The cardiomediastinal contours are unremarkable. Osseous structures are intact. CONCLUSION: 1. No active disease. Yoshi Moyer MD on November 14, 2017 at 12:35 Board Certified Radiologist. This report was verified electronically.
[2017-11-14 12:51] VITALS: BP_SYST 129; BP_SYST 137; BP_DIAS 63; BP_DIAS 69; RESP 18
--- NOTE | 2017-11-14 12:52 | RADRPT ---
EXAM DATE/TIME: 11/14/2017 12:35 [facility] COMPARISON: CT BRAIN W/O CONTRAST, June 02, 2013, 13:30. INDICATIONS : Sycnope, generalized weakness. RADIATION DOSE: 34.05 CTDIvol (mGy) MEDICAL HISTORY : Cerebrovascular disease. Cardiovascular disease SURGICAL HISTORY : Appendectomy. Hysterectomy. ENCOUNTER: Initial ACUITY: 1 day PAIN SCALE: 0/10 LOCATION: cranial TECHNIQUE: Multiple contiguous axial images were obtained of the head. Using automated exposure control and adj ustment of the mA and/or kV according to patient size, radiation dose was kept as low as reasonably a chievable to obtain optimal diagnostic quality images. DICOM format image data is available electro nically for review and comparison. FINDINGS: CEREBRUM: The ventricles are normal for age. No evidence of midline shift, mass lesion, hemorrhage or acute in farction. No extra-axial fluid collections are seen. POSTERIOR FOSSA: The cerebellum and brainstem are intact. The 4th ventricle is midline. The cerebellopontine angle i s unremarkable. EXTRACRANIAL: The visualized portion of the orbits is intact. SKULL: The calvaria is intact. No evidence of skull fracture. CONCLUSION: 1. No acute intracranial abnormalities. Yoshi Moyer MD on November 14, 2017 at 12:47 Board Certified Radiologist. This report was verified electronically.
[2017-11-14 12:55] LABS: AUTOMATED NEUTROPHIL # 8.7 TH/MM3 (1.8-7.7); BASOPHIL % 0.3 % (0.0-2.0); EOSINOPHIL # 0.1 TH/MM3 (0-0.4); HEMATOCRIT 43.1 % (35.0-46.0); HEMOGLOBIN 14.4 GM/DL (11.6-15.3); LYMPH % 10.3 % (9.0-44.0); LYMPHOCYTE # 1.2 TH/MM3 (1.0-4.8); MEAN CELL VOLUME 95.1 FL (80.0-100.0); MEAN CORPUSCULAR HEMOGLOBIN 31.8 PG (27.0-34.0); MEAN CORPUSCULAR HGB CONC 33.4 % (32.0-36.0); MEAN PLATELET VOLUME 7.6 FL (7.0-11.0); MONO % 11.5 % (0.0-8.0); MONOCYTE # 1.3 TH/MM3 (0-0.9); NEUT % 76.9 % (16.0-70.0); PLATELET COUNT 225 TH/MM3 (150-450); RED BLOOD COUNT 4.53 MIL/MM3 (4.00-5.30); RED CELL DISTRIBUTION WIDTH 16.1 % (11.6-17.2); WHITE BLOOD COUNT 11.3 TH/MM3 (4.0-11.0)
[2017-11-14 13:04] LABS: INTERNATIONAL NORMALIZED RATIO 1.1 RATIO; PROTHROMBIN TIME - PATIENT 11.3 SEC (9.8-11.6)
[2017-11-14 13:12] LABS: ALBUMIN 4.1 GM/DL (3.4-5.0); BICARBONATE 28.2 MEQ/L (21.0-32.0); BLOOD UREA NITROGEN 17 MG/DL (7-18); CALCIUM 9.9 MG/DL (8.5-10.1); CHLORIDE 94 MEQ/L (98-107); CREATININE 1.09 MG/DL (0.50-1.00); GLOMERULAR FILTRATION RATE 48 ML/MIN (>89); GLUCOSE,RANDOM 152 MG/DL (74-106); MAGNESIUM 1.8 MG/DL (1.5-2.5); SODIUM (NA) 134 MEQ/L (136-145)
[2017-11-14 13:24] LABS: ALKALINE PHOSPHATASE 65 U/L (45-117); ALT (GPT) 36 U/L (10-53); AST (GOT) 33 U/L (15-37); TOTAL BILIRUBIN ADULT 0.9 MG/DL (0.2-1.0); TOTAL PROTEIN 7.8 GM/DL (6.4-8.2); TROPONIN I LESS THAN 0.02 NG/ML (0.02-0.05)
[2017-11-14] MEDS ORDERED: POTASSIUM CHLORIDE 10 MEQ CONTROLLED RELEASE TAB PO ONE (13:30)
[2017-11-14 13:47] LABS: BILIRUBIN, URINE NEG (NEG); BLOOD, URINE NEG (NEG); GLUCOSE,URINE NEG (NEG); HYALINE CAST, URINE 3 /lpf (RARE); KETONE, URINE 10 mg/dL (NEG); MUCUS URINE FEW /lpf (OCC); NITRITE,URINE NEG (NEG); PH, URINE 7.5 (5.0-8.5); SQUAMOUS EPITHELIAL CELL URINE 1 /hpf (0-5); URINE COLOR YELLOW (YELLW/STRAW); URINE LEUKOCYTE ESTERASE NEG (NEG)
[2017-11-14] MEDS ORDERED: SODIUM CHLORIDE 0.9% FLUSH 10 ML FLUSH IV FLUSH PRN (14:15)
[2017-11-14] MEDS ORDERED: SENNOSIDES 8.6 MG TAB PO PRN (14:15)
[2017-11-14] MEDS ORDERED: ONDANSETRON HCL 4 MG/2 ML VIAL IVP PRN (14:15)
[2017-11-14] MEDS ORDERED: NALOXONE HCL 0.4 MG/ML AMP IV PUSH PRN (14:15)
[2017-11-14] MEDS ORDERED: LACTULOSE SYRUP 20 GM/30 ML CUP PO PRN (14:15)
[2017-11-14] MEDS ORDERED: BISACODYL 10 MG SUPP RECTAL PRN (14:15)
[2017-11-14] MEDS ORDERED: ACETAMINOPHEN 325 MG TAB PO PRN (14:15)
--- NOTE | 2017-11-14 14:15 | HHI.HP ---
HPI Service [facility] Primary Care Physician Unknown Admission Diagnosis Syncope Diagnoses: Chief Complaint: syncopal episode. Travel History International Travel<30 Days: No Contact w/Intl Traveler <30 Da: No Traveled to Known Affected Are: No History of Present Illness This is a pleasant 82 y/o female who came to Emergency room brought in by EMS with witnessed syncopal episode by her , she has a history of generalized weakness and fibromyalgia, and usually uses a walker or wheelchair at home. Reportedly the was trying to get patient up out of her chair, when she had a 2-3 seconds syncopal episode. Patient has had some confusion reported in transport, but denies significant pain, nausea, vomiting, or other constitutional symptoms. She denies headache. At first she felt she was in [place], [place], but now seems oriented. Patient was seen yesterday by Dr. Hutchinson with reports of generalized weakness, without any significant findings. Patient is allergic to aspirin. the patient was seen in Emergency room as er patient she states she is been having difficulty to stand up and walk, two days ago what happened was that she finally stood up and could not move more, does not look like a real Syncopal episode, she was recommended for admission by ER physician. will follow to observe, asked for Patient Care Technician and PT evaluation for discharge. Review of Systems Constitutional: DENIES: Fever, Chills, Change in appetite Endocrine: DENIES: Heat/cold intolerance Eyes: DENIES: Blurred vision, Eye pain Cardiovascular: COMPLAINS OF: Syncope Except as stated in HPI: all other systems reviewed are Neg Past Family Social History Past Medical History OA Depression CAD status post IA Hyperlipidemia COPD TIA in the past DM II GERD Hypothyroidism fibromyalgia Chronic Atrial Fibrillation with RVR on Xarelto. Past Surgical History Appendectomy DAGOBERTO tonsillectomy Reported Medications Reported Meds & Active Scripts Active Proair Hfa 8.5 GM Inh (Albuterol Sulfate) 90 Mcg/Act Aer 2 Puff INH Q4-6H PRN 108 mcg/actuation Reported Gabapentin 100 Mg Cap 100 Mg PO HS Lyrica (Pregabalin) 50 Mg Cap 50 Mg PO DIRECTED Tramadol (Tramadol HCl) 50 Mg Tab 50 Mg PO BID PRN Sertraline (Sertraline HCl) 25 Mg Tab 25 Mg PO DAILY Lipitor (Atorvastatin Calcium) 80 Mg Tab 80 Mg PO HS Indomethacin 25 Mg Cap 25 Mg PO DIRECTED Take with food, milk, or antacids to decrease stomach adverse effects. Advair Diskus Inh (Fluticasone-Salmeterol Inh) 100-50 Mcg/Blist Aer 1 Puff INH BID PRN Rinse mouth after use. Xarelto (Rivaroxaban) 20 Mg Tab 20 Mg PO DAILY Omeprazole 20 Mg Tab 20 Mg PO DAILY Levothyroxine (Levothyroxine Sodium) 75 Mcg Tab 50 Mcg PO DAILY Allergies: Coded Allergies: aspirin (Unverified Allergy, Severe, HIVES, 11/12/17) Active Ordered Medications Current Medications Medications (Trade) Dose Ordered Sig/Franchesca Route Start Time Stop Time Status Last Admin Sodium Chloride 1,000 ml @ 100 mls/hr Q10H IV 11/14/17 14:03 11/14/17 14:42 (NS Flush) 2 ml UNSCH PRN IV FLUSH 11/14/17 14:15 (NS Flush) 2 ml BID IV FLUSH 11/14/17 21:00 (Tylenol) 650 mg Q4H PRN PO 11/14/17 14:15 (Zofran Inj) 4 mg Q6H PRN IVP 11/14/17 14:15 (Narcan Inj) 0.4 mg UNSCH PRN IV PUSH 11/14/17 14:15 (Senokot) 17.2 mg Q12H PRN PO 11/14/17 14:15 (Dulcolax Supp) 10 mg DAILY PRN RECTAL 11/14/17 14:15 (Lactulose Liq) 30 ml DAILY PRN PO 11/14/17 14:15 (Lipitor) 80 mg HS PO 11/14/17 21:00 UNV (Neurontin) 100 mg HS PO 11/14/17 21:00 UNV (Synthroid) 50 mcg DAILY PO 11/15/17 09:00 UNV (Xarelto) 20 mg DAILY PO 11/15/17 09:00 UNV (Ultram) 50 mg BID PRN PO 11/14/17 14:45 UNV Non-Formulary Medication 1 puff BID PRN INH 11/14/17 14:45 UNV Non-Formulary Medication 25 mg DAILY PO 11/15/17 09:00 UNV Family History Asked and denied by patient. Social History Lives with her and drinks 3 beers daily she was a horticultural farmworker for 40 years. Physical Exam Vital Signs Vital Signs Date Time Temp Pulse Resp B/P (MAP) Pulse Ox O2 Delivery O2 Flow Rate FiO2 11/14/17 12:51 99 18 129/63 (85) 99 18 137/69 (91) 11/14/17 12:27 112 18 99 Room Air 11/14/17 12:27 97.5 116 18 132/57 (82) 99 Room Air 11/14/17 12:26 18 99 Room Air Physical Exam GENERAL: Patient appears in no obvious distress. She is alert and oriented 3. SKIN: Warm and dry. Normal color. Normal turgor. No rash. HEAD: Atraumatic. Normocephalic. EYES: Pupils equal and round. No scleral icterus. No injection or drainage. ENT: No nasal bleeding or discharge. Mucous membranes pink and moist. Pharynx is clear. Airway is patent. NECK: Trachea midline. No JVD. CARDIOVASCULAR: Tachycardic rate and irregular rhythm. RESPIRATORY: No accessory muscle use. Clear to auscultation. Breath sounds equal bilaterally. GASTROINTESTINAL: Abdomen soft, non-tender, nondistended. Hepatic and splenic margins not palpable. MUSCULOSKELETAL: Extremities without clubbing, cyanosis, or edema. No obvious deformities. NEUROLOGICAL: Awake and alert. No obvious cranial nerve deficits. Motor grossly within normal limits. Five out of 5 muscle strength in the arms and legs. Normal speech. PSYCHIATRIC: Appropriate mood and affect; insight and judgment normal. Laboratory Laboratory Tests Test 11/14/17 12:24 11/14/17 13:12 White Blood Count 11.3 Red Blood Count 4.53 Hemoglobin 14.4 Hematocrit 43.1 Mean Corpuscular Volume 95.1 Mean Corpuscular Hemoglobin 31.8 Mean Corpuscular Hemoglobin Concent 33.4 Red Cell Distribution Width 16.1 Platelet Count 225 Mean Platelet Volume 7.6 Neutrophils (%) (Auto) 76.9 Lymphocytes (%) (Auto) 10.3 Monocytes (%) (Auto) 11.5 Eosinophils (%) (Auto) 1.0 Basophils (%) (Auto) 0.3 Neutrophils # (Auto) 8.7 Lymphocytes # (Auto) 1.2 Monocytes # (Auto) 1.3 Eosinophils # (Auto) 0.1 Basophils # (Auto) 0.0 CBC Comment DIFF FINAL Differential Comment Prothrombin Time 11.3 Prothromb Time International Ratio 1.1 Activated Partial Thromboplast Time 24.8 Blood Urea Nitrogen 17 Creatinine 1.09 Random Glucose 152 Total Protein 7.8 Albumin 4.1 Calcium Level 9.9 Magnesium Level 1.8 Alkaline Phosphatase 65 Aspartate Amino Transf (AST/SGOT) 33 Alanine Aminotransferase (ALT/SGPT) 36 Total Bilirubin 0.9 Sodium Level 134 Potassium Level 3.2 Chloride Level 94 Carbon Dioxide Level 28.2 Anion Gap 12 Estimat Glomerular Filtration Rate 48 Total Creatine Kinase 150 Creatine Kinase MB 2.4 Troponin I LESS THAN 0.02 Urine Color YELLOW Urine Turbidity CLEAR Urine pH 7.5 Urine Specific [place] 1.008 Urine Protein 30 Urine Glucose (UA) NEG Urine Ketones 10 Urine Occult Blood NEG Urine Nitrite NEG Urine Bilirubin NEG Urine Urobilinogen LESS THAN 2.0 Urine Leukocyte Esterase NEG Urine RBC 2 Urine WBC 1 Urine Squamous Epithelial Cells 1 Urine Hyaline Casts 3 Urine Mucus FEW Microscopic Urinalysis Comment CATH-CULT NOT IND Result Diagram: 11/14/17 1224 11/14/17 1224 Imaging Last Impressions Head CT 11/14/17 1204 Signed Impressions: Service Date/Time: Tuesday, November 14, 2017 12:35 - CONCLUSION: 1. No acute intracranial abnormalities. Yoshi Moyer MD Chest X-Ray 11/14/17 1204 Signed Impressions: Service Date/Time: Tuesday, November 14, 2017 12:17 - CONCLUSION: 1. No active disease. Yoshi Moyer MD Caprini VTE Risk Assessment Caprini VTE Risk Assessment: Mod/High Risk (score >= 2) Caprini Risk Assessment Model Point Value = 1 Point Value = 2 Point Value = 3 Point Value = 5 Age 41-60 Minor surgery BMI > 25 kg/m2 Swollen legs Varicose veins or History of unexplained or recurrent spontaneous Oral contraceptives or hormone replacement Sepsis (< 1 month) Serious lung disease, including pneumonia (< 1 month) Abnormal pulmonary function Acute myocardial infarction Congestive heart failure (< 1 month) History of inflammatory bowel disease Medical patient at bed rest Age 61-74 Arthroscopic surgery Major open surgery (> 45 min) Laparoscopic surgery (> 45 min) Malignancy Confined to bed (> 72 hours) Immobilizing plaster cast Central venous access Age >= 75 History of VTE Family history of VTE Factor V Leiden Prothrombin [id number] Lupus anticoagulant Anticardiolipin antibodies Elevated serum homocysteine Heparin-induced thrombocytopenia Other congenital or acquired thrombophilia Stroke (< 1 month) Elective arthroplasty Hip, pelvis, or leg fracture Acute spinal cord injury (< 1 month) Prophylaxis Regimen Total Risk Factor Score Risk Level Prophylaxis Regimen 0-1 Low Early ambulation 2 Moderate Order ONE of the following: *Sequential Compression Device (SCD) *Heparin 5000 units SQ BID 3-4 Higher Order ONE of the following medications: *Heparin 5000 units SQ TID *Enoxaparin/Lovenox 40 mg SQ daily (WT < 150 kg, CrCl > 30 mL/min) *Enoxaparin/Lovenox 30 mg SQ daily (WT < 150 kg, CrCl > 10-29 mL/min) *Enoxaparin/Lovenox 30 mg SQ BID (WT < 150 kg, CrCl > 30 mL/min) AND/OR *Sequential Compression Device (SCD) 5 or more Highest Order ONE of the following medications: *Heparin 5000 units SQ TID (Preferred with Epidurals) *Enoxaparin/Lovenox 40 mg SQ daily (WT < 150 kg, CrCl > 30 mL/min) *Enoxaparin/Lovenox 30 mg SQ daily (WT < 150 kg, CrCl > 10-29 mL/min) *Enoxaparin/Lovenox 30 mg SQ BID (WT < 150 kg, CrCl > 30 mL/min) AND *Sequential Compression Device (SCD) Assessment and Plan Assessment and Plan 1. Syncopal episode, Orthostatic vital signs, EKG shows Atrial fibrillation with RVR she is on chronic Xarelto use, CT head unremarkable, to continue Cardiac enzymes, Cardiac monitoring, Echocardiogram, PT eval and Patient Care Technician 2. Hypokalemia replaced and following. 3. OA by history 4. Depression to continue home medicines 5. CAD status post IA 6. Hyperlipidemia to continue Home medicines 7. COPD secondary to second hand smoker to continue bronchodilator, Mucolytic and incentive spirometry 8. TIA in the past 9. DM II continue sliding scale. 10. Hypothyroidism to continue Hormonal replacement 11. Fibromyalgia by history 12. Chronic atrial fibrillation with RVR on Xarelto. DVT prophylaxis with Xarelto. Discussed Condition With patient Terrence De La Vega MD Nov 14, 2017 14:15
[2017-11-14] MEDS: SODIUM CHLOR 0.9% 1000 ML INJ 1,000 ML IV SCH (14:42)
[2017-11-14] MEDS ORDERED: traMADol HCL 50 MG TAB PO PRN (14:45)
[2017-11-14] MEDS ORDERED: BUDESONIDE-FORMOTEROL 80/4.5 MCG INHALER INH PRN (14:45)
--- NOTE | 2017-11-14 15:24 | PD ---
Physical Exam Date Seen by Provider: Nov 14, 2017 Time Seen by Provider: 14:00 Narrative I, Dr. Navas, have reviewed the advance practice practitioner's documentation and am in agreement, met with the patient face to face, made the diagnosis, and the medical decision making was done by me. *My assessment and Findings: Patient seen and evaluated with PA, please see PA note for further details. Patient presenting with syncopal episode. No focal neurological deficits identified ER. Vital signs are stable. Laboratory Tests Test 11/14/17 12:24 11/14/17 13:12 White Blood Count 11.3 TH/MM3 (4.0-11.0) Neutrophils (%) (Auto) 76.9 % (16.0-70.0) Monocytes (%) (Auto) 11.5 % (0.0-8.0) Neutrophils # (Auto) 8.7 TH/MM3 (1.8-7.7) Monocytes # (Auto) 1.3 TH/MM3 (0-0.9) Creatinine 1.09 MG/DL (0.50-1.00) Random Glucose 152 MG/DL (74-106) Sodium Level 134 MEQ/L (136-145) Potassium Level 3.2 MEQ/L (3.5-5.1) Chloride Level 94 MEQ/L (98-107) Estimat Glomerular Filtration Rate 48 ML/MIN (>89) Troponin I LESS THAN 0.02 NG/ML Urine Protein 30 mg/dL (NEG-TRACE) Urine Ketones 10 mg/dL (NEG) Urine Mucus FEW /lpf (OCC) Last [address] 11/14/17 1204 Signed Impressions: Service Date/Time: Tuesday, November 14, 2017 12:35 - CONCLUSION: 1. No acute intracranial abnormalities. Yoshi Moyer MD Chest X-Ray 11/14/17 1204 Signed Impressions: Service Date/Time: Tuesday, November 14, 2017 12:17 - CONCLUSION: 1. No active disease. Yoshi Moyer MD Workup essentially unremarkable for any significant metabolic issues, potassium is mildly low. Cardiac enzymes are negative. CAT scan is otherwise unremarkable. X-ray did not show any signs of acute pulmonary processes. EKG did show some A. fib with RVR but heart rate came down nicely and his own in the ER. At this point, my plan would be to admit the patient for further evaluation of syncope. Data Data Last Documented VS Vital Signs Date Time Temp Pulse Resp B/P (MAP) Pulse Ox O2 Delivery O2 Flow Rate FiO2 11/14/17 12:51 99 18 129/63 (85) 99 18 137/69 (91) 11/14/17 12:27 99 Room Air 11/14/17 12:27 97.5 Orders Orders Electrocardiogram (11/14/17 12:04) Complete Blood Count With Diff (11/14/17 12:04) Comprehensive Metabolic Panel (11/14/17 12:04) Magnesium (Mg) (11/14/17 12:04) Ckmb (Isoenzyme) Profile (11/14/17 12:04) Troponin I (11/14/17 12:04) Act Partial Throm Time (Ptt) (11/14/17 12:04) Prothrombin Time / Inr (Pt) (11/14/17 12:04) Urinalysis - C+S If Indicated (11/14/17 12:04) Chest, Single Ap (11/14/17 12:04) Ct Brain W/O Iv Contrast(Rout) (11/14/17 12:04) Ecg Monitoring (11/14/17 12:04) Iv Access Insert/Monitor (11/14/17 12:04) Oximetry (11/14/17 12:04) Sodium Chloride 0.9% Flush (Ns Flush) (11/14/17 12:15) Orthostatic Vital Signs (11/14/17 12:04) Sodium Chlorid 0.9% 500 Ml Inj (Ns 500 M (11/14/17 12:15) Cath For Specimen (11/14/17 12:04) Potassium Chloride (Kcl) (11/14/17 13:30) CKMB (11/14/17 12:24) CKMB% (11/14/17 12:24) Place In Observation (11/14/17 ) Vital Signs (Adult) Q4H (11/14/17 14:03) Activity Oob Ad Shraddha (11/14/17 14:03) Electro Mechanic / Telemetry .CONTINUOUS (11/14/17 14:03) Intake + Output TRACEE.QSHIFT (11/14/17 14:03) Notify Dr: Other (11/14/17 14:03) Diet Heart Healthy (11/14/17 Dinner) Sodium Chlor 0.9% 1000 Ml Inj (Ns 1000 M (11/14/17 14:03) Sodium Chloride 0.9% Flush (Ns Flush) (11/14/17 14:15) Sodium Chloride 0.9% Flush (Ns Flush) (11/14/17 21:00) Acetaminophen (Tylenol) (11/14/17 14:15) Ondansetron Inj (Zofran Inj) (11/14/17 14:15) Basic Metabolic Panel (Bmp) (11/15/17 06:00) Complete Blood Count With Diff (11/15/17 06:00) Creatine Kinase (Cpk) (11/14/17 14:03) Creatine Kinase (Cpk) (11/14/17 20:03) Troponin I (11/14/17 14:03) Troponin I (11/14/17 20:03) Resp Oxygen Warren C Titrat 1-4 L (11/14/17 ) Pt Request For Service (11/14/17 14:03) Case Management Consult (11/14/17 14:03) Scd Bilateral/Knee High TRACEE.BID (11/14/17 14:03) Naloxone Inj (Narcan Inj) (11/14/17 14:15) Sennosides (Senokot) (11/14/17 14:15) Bisacodyl Supp (Dulcolax Supp) (11/14/17 14:15) Lactulose Liq (Lactulose Liq) (11/14/17 14:15) Admit Order (Ed Use Only) (11/14/17 14:06) Labs Laboratory Tests Test 11/14/17 12:24 11/14/17 13:12 White Blood Count 11.3 TH/MM3 Red Blood Count 4.53 MIL/MM3 Hemoglobin 14.4 GM/DL Hematocrit 43.1 % Mean Corpuscular Volume 95.1 FL Mean Corpuscular Hemoglobin 31.8 PG Mean Corpuscular Hemoglobin Concent 33.4 % Red Cell Distribution Width 16.1 % Platelet Count 225 TH/MM3 Mean Platelet Volume 7.6 FL Neutrophils (%) (Auto) 76.9 % Lymphocytes (%) (Auto) 10.3 % Monocytes (%) (Auto) 11.5 % Eosinophils (%) (Auto) 1.0 % Basophils (%) (Auto) 0.3 % Neutrophils # (Auto) 8.7 TH/MM3 Lymphocytes # (Auto) 1.2 TH/MM3 Monocytes # (Auto) 1.3 TH/MM3 Eosinophils # (Auto) 0.1 TH/MM3 Basophils # (Auto) 0.0 TH/MM3 CBC Comment DIFF FINAL Differential Comment Prothrombin Time 11.3 SEC Prothromb Time International Ratio 1.1 RATIO Activated Partial Thromboplast Time 24.8 SEC Blood Urea Nitrogen 17 MG/DL Creatinine 1.09 MG/DL Random Glucose 152 MG/DL Total Protein 7.8 GM/DL Albumin 4.1 GM/DL Calcium Level 9.9 MG/DL Magnesium Level 1.8 MG/DL Alkaline Phosphatase 65 U/L Aspartate Amino Transf (AST/SGOT) 33 U/L Alanine Aminotransferase (ALT/SGPT) 36 U/L Total Bilirubin 0.9 MG/DL Sodium Level 134 MEQ/L Potassium Level 3.2 MEQ/L Chloride Level 94 MEQ/L Carbon Dioxide Level 28.2 MEQ/L Anion Gap 12 MEQ/L Estimat Glomerular Filtration Rate 48 ML/MIN Total Creatine Kinase 150 U/L Creatine Kinase MB 2.4 NG/ML Troponin I LESS THAN 0.02 NG/ML Urine Color YELLOW Urine Turbidity CLEAR Urine pH 7.5 Urine Specific Milligan 1.008 Urine Protein 30 mg/dL Urine Glucose (UA) NEG mg/dL Urine Ketones 10 mg/dL Urine Occult Blood NEG Urine Nitrite NEG Urine Bilirubin NEG Urine Urobilinogen LESS THAN 2.0 MG/DL Urine Leukocyte Esterase NEG Urine RBC 2 /hpf Urine WBC 1 /hpf Urine Squamous Epithelial Cells 1 /hpf Urine Hyaline Casts 3 /lpf Urine Mucus FEW /lpf Microscopic Urinalysis Comment CATH-CULT NOT IND MDM Medical Record Reviewed: Yes Supervised Visit with FABY: Yes Diagnosis Primary Impression: Syncope Qualified Codes: R55 - Syncope and collapse Additional Impressions: Orthostatic dizziness Chronic atrial fibrillation with RVR Hypokalemia Admitting Information Admitting Physician Requests: Admit Condition: Stable Odette Navas MD Nov 14, 2017 15:24
--- NOTE | 2017-11-14 16:24 | RADRPT ---
EXAM DATE/TIME: 11/14/2017 15:36 [facility] COMPARISON: No previous studies available for comparison. INDICATIONS : Weakness. MEDICAL HISTORY : Stroke. Myocardial infarction. Hypercholesterolemia. Thyroid disease. Syncope. Congestive heart failu re. Chest pain. COPD. Gastroesophageal reflux disease. Arthritis. Depression. SURGICAL HISTORY : Tonsillectomy. Appendectomy. Hysterectomy. ENCOUNTER: Initial ACUITY: 1 day PAIN SCORE: 0/10 LOCATION: Bilateral neck PEAK SYSTOLIC VELOCITIES (cm/sec): ICA/CCA RATIO: Right: 1.8 Left: 0.8 ICA: Right: 91.9 Left: 43.3 CCA: Right: 50.4 Left: 54.8 ECA: Right: 81.4 Left: 63.6 VERTEBRAL: Right: 49.3 antegrade Left: 52.3 antegrade Elevated flow velocities and ICA/CCA ratios have been found to correlate with increased degrees of vessel stenosis, calculated as percentage of diameter relative to a normal segment of distal ICA/CCA FINDINGS: RIGHT CAROTID: Patchy moderate calcific plaquing involving the right carotid system. No definite flow-limiting steno sis by objective measures LEFT CAROTID: Patchy moderate calcific plaquing involving the left carotid system. No definite flow-limiting stenos is by objective measures. VERTEBRAL ARTERIES: Antegrade flow is seen in both vertebral arteries. MISCELLANEOUS: None. CONCLUSION: No evidence of flow-limiting carotid stenosis. Som Morales MD on November 14, 2017 at 16:20 Board Certified Radiologist. This report was verified electronically.
[2017-11-14 18:20] VITALS: BP 117/65; PULSE 143; RESP 24; TEMP 96.1; O2SAT 100
[2017-11-14 19:03] LABS: TROPONIN I LESS THAN 0.02 NG/ML (0.02-0.05)
[2017-11-14] MEDS: RESP: IPRATROPIUM 0.5 MG/2.5 ML NEB NEB SCH ×2 (20:15→23:24)
[2017-11-14 20:45] VITALS: BP 142/88; PULSE 98; RESP 17; TEMP 98; O2SAT 99
[2017-11-14] MEDS: SODIUM CHLORIDE 0.9% FLUSH 10 ML FLUSH IV FLUSH SCH (21:00)
[2017-11-14] MEDS ORDERED: ATORVASTATIN 80 MG TAB PO SCH (21:00)
[2017-11-14] MEDS ORDERED: GABAPENTIN 100 MG CAP PO SCH (21:00)
[2017-11-14] MEDS: guaiFENesin E.R. 600 MG TAB PO SCH (21:06)
[2017-11-14 21:49] LABS: TROPONIN I 0.03 NG/ML (0.02-0.05)
[2017-11-14 22:35] VITALS: PULSE 84
[2017-11-15] VITALS (7 sets, daily range): BP systolic 122–171; BP diastolic 58–89; PULSE 84–95; RESP 18; TEMP 96.1–98.7; O2SAT 95–100
[2017-11-15] MEDS: RESP: IPRATROPIUM 0.5 MG/2.5 ML NEB NEB SCH ×3 (03:38→11:26)
[2017-11-15] MEDS: SODIUM CHLOR 0.9% 1000 ML INJ 1,000 ML IV SCH ×2 (04:50→13:40)
[2017-11-15 07:57] LABS: AUTOMATED NEUTROPHIL # 7.2 TH/MM3 (1.8-7.7); BASOPHIL % 0.3 % (0.0-2.0); EOSINOPHIL # 0.1 TH/MM3 (0-0.4); EOSINOPHIL % 1.1 % (0.0-4.0); HEMATOCRIT 44.4 % (35.0-46.0); LYMPH % 13.2 % (9.0-44.0); LYMPHOCYTE # 1.4 TH/MM3 (1.0-4.8); MEAN CORPUSCULAR HEMOGLOBIN 32.1 PG (27.0-34.0); MEAN CORPUSCULAR HGB CONC 33.7 % (32.0-36.0); MONO % 15.1 % (0.0-8.0); MONOCYTE # 1.6 TH/MM3 (0-0.9); NEUT % 70.3 % (16.0-70.0); PLATELET COUNT 180 TH/MM3 (150-450); RED BLOOD COUNT 4.67 MIL/MM3 (4.00-5.30); RED CELL DISTRIBUTION WIDTH 16.4 % (11.6-17.2); WHITE BLOOD COUNT 10.3 TH/MM3 (4.0-11.0)
[2017-11-15] MEDS: guaiFENesin E.R. 600 MG TAB PO SCH (08:09)
[2017-11-15] MEDS: SODIUM CHLORIDE 0.9% FLUSH 10 ML FLUSH IV FLUSH SCH (08:09)
[2017-11-15 08:23] LABS: BICARBONATE 29.2 MEQ/L (21.0-32.0); CALCIUM 9.4 MG/DL (8.5-10.1); CREATININE 0.86 MG/DL (0.50-1.00); MAGNESIUM 1.8 MG/DL (1.5-2.5); PHOSPHORUS 3.2 MG/DL (2.5-4.9)
[2017-11-15] MEDS ORDERED: LEVOTHYROXINE SODIUM 50 MCG TAB PO SCH (09:00)
[2017-11-15] MEDS ORDERED: RIVAROXABAN 20 MG TAB PO SCH (09:00)
[2017-11-15] MEDS ORDERED: SERTRALINE HCL 50 MG TAB PO SCH (09:00)
--- NOTE | 2017-11-15 11:50 | HHI.PR ---
Subjective Remarks in no acute distress. denies chest pain, sob or dizziness. HR trend noted. Objective Vitals Vital Signs Date Time Temp Pulse Resp B/P (MAP) Pulse Ox O2 Delivery O2 Flow Rate FiO2 11/15/17 08:21 96.1 89 18 122/58 (79) 100 11/15/17 07:36 95 21 11/15/17 04:55 87 11/15/17 03:24 98.7 87 18 142/71 (94) 96 11/15/17 02:07 98.4 84 18 135/64 (87) 98 11/15/17 00:25 98 11/14/17 22:35 84 11/14/17 20:45 98.0 98 17 142/88 (106) 99 11/14/17 18:20 96.1 143 24 117/65 (82) 100 11/14/17 12:51 99 18 129/63 (85) 99 18 137/69 (91) 11/14/17 12:27 112 18 99 Room Air 11/14/17 12:27 97.5 116 18 132/57 (82) 99 Room Air 11/14/17 12:26 18 99 Room Air I/O 11/14/17 11/14/17 11/14/17 11/15/17 11/15/17 11/15/17 07:00 15:00 23:00 07:00 15:00 23:00 Intake Total 500 ml Balance 500 ml Intake IV Total 500 ml Result Diagram: 11/15/17 0746 11/15/17 0746 Imaging Last Impressions Head CT 11/14/17 1204 Signed Impressions: Service Date/Time: Tuesday, November 14, 2017 12:35 - CONCLUSION: 1. No acute intracranial abnormalities. Yoshi Moyer MD Chest X-Ray 11/14/17 1204 Signed Impressions: Service Date/Time: Tuesday, November 14, 2017 12:17 - CONCLUSION: 1. No active disease. Yoshi Moyer MD Carotid Artery Ultrasound 11/14/17 0000 Signed Impressions: Service Date/Time: Tuesday, November 14, 2017 15:36 - CONCLUSION: No evidence of flow-limiting carotid stenosis. Som Morales MD Objective Remarks GENERAL: This is a well-nourished, well-developed patient, in no apparent distress. CARDIOVASCULAR: Regular rate and regular rhythm without murmurs, gallops, or rubs. RESPIRATORY: Clear to auscultation. Breath sounds equal bilaterally. No wheezes , rales, or rhonchi. GASTROINTESTINAL: Abdomen soft, non-tender, nondistended. Normal, active bowel sounds MUSCULOSKELETAL: Extremities without clubbing, cyanosis, or edema. NEURO: Alert & Oriented x4 to person, place, time, situation. Moves all ext x4 Medications and IVs Inpatient Medications Acetaminophen (Tylenol) 650 mg Q4H PRN PO TEMP > 100.4; Start 11/14/17 at 14:15 Atorvastatin Calcium (Lipitor) 80 mg HS PO Last administered on 11/14/17at 21:06 ; Start 11/14/17 at 21:00 Bisacodyl (Dulcolax Supp) 10 mg DAILY PRN RECTAL SEVERE CONSITIPATION; Start at 14:15 Budesonide/ Formoterol Fumarate (Symbicort 80-4.5 Mcg Inh) 2 puff BID PRN INH SHORTNESS OF BREATH; Start 11/14/17 at 14:45 Gabapentin (Neurontin) 100 mg HS PO Last administered on 11/14/17at 21:06; Start 11/14/17 at 21:00 Guaifenesin (Mucinex Er) 600 mg BID PO Last administered on 11/15/17at 08:09; Start 11/14/17 at 21:00 Ipratropium [place] (Atrovent Neb) 0.5 mg Q4HR NEB NEB Last administered on at 11:26; Start 11/14/17 at 20:00 Lactulose (Lactulose Liq) 30 ml DAILY PRN PO SEVERE CONSITIPATION; Start at 14:15 Levothyroxine Sodium (Synthroid) 50 mcg DAILY PO Last administered on at 08:09; Start 11/15/17 at 09:00 Naloxone HCl (Narcan Inj) 0.4 mg UNSCH PRN IV PUSH SEE LABEL COMMENTS; Start at 14:15 Ondansetron HCl (Zofran Inj) 4 mg Q6H PRN IVP NAUSEA OR VOMITING; Start at 14:15 Potassium Chloride (KCl) 30 meq ONCE ONCE PO Last administered on 11/14/17at 13 :35; Start 11/14/17 at 13:30; Stop 11/14/17 at 13:31; Status DC Rivaroxaban (Xarelto) 20 mg DAILY PO Last administered on 11/15/17at 08:09; Start 11/15/17 at 09:00 Sennosides (Senokot) 17.2 mg Q12H PRN PO Moderate constipation; Start 11/14/17 at 14:15 Sertraline HCl (Zoloft) 25 mg DAILY PO Last administered on 11/15/17at 08:10; Start 11/15/17 at 09:00 Sodium Chloride (NS Flush) 2 ml BID IV FLUSH ; Start 11/14/17 at 21:00 Tramadol HCl (Ultram) 50 mg BID PRN PO PAIN; Start 11/14/17 at 14:45 A/P Assessment and Plan A/P 1. near-syncope EKG shows Atrial fibrillation with RVR she is on chronic Xarelto use, CT head unremarkable- no orthostatic hypotension. carotid doppler with no significant stenosis. HR better- echo pending. 2. Hypokalemia replaced . 3. OA by history 4. Depression to continue home medicines 5. CAD status post PR 6. Hyperlipidemia to continue Home medicines 7. COPD secondary to second hand smoker to continue bronchodilator, Mucolytic and incentive spirometry 8. TIA in the past 9. DM II continue sliding scale. 10. Hypothyroidism to continue Hormonal replacement 11. Fibromyalgia by history Discharge Planning rehab was offered but the patient declined and wants to go home today. case management will be consulted for [facility]. Rafa Noguera MD Nov 15, 2017 11:50
[2017-11-15] MEDS ORDERED: DEXTROSE 50% IN WATER 50 ML VIAL(D50) IV PUSH PRN (12:00)
[2017-11-15] MEDS ORDERED: GLUCAGON 1 MG/ML VIAL OTHER PRN (12:00)
[2017-11-15] MEDS ORDERED: INSULIN ASPART SUPPLEMENTAL SCALE SQ SCH (12:00)
--- NOTE | 2017-11-15 12:05 | HHI.FF ---
Face to Face Verification Diagnosis: (1) COPD (chronic obstructive pulmonary disease) (2) CAD (coronary artery disease) (3) Depression (4) Osteoarthritis (5) HLD (hyperlipidemia) (6) Diabetes (7) TIA (transient ischemic attack) (8) Fibromyalgia (9) Syncope Physical Therapy Order: Evaluate and Treat, Improve ambulation, Strength and gait training Home Health Nursing Order: Medical education Signs/symptoms of disease process Diabetic education Nursing assessment with vital signs I have seen patient Deyanira Saldaña on 11/15/17. My clinical findings support the need for the requested home health care services because: Ltd mobility - disease progression Deconditioned w/ increased weakness Limited ability to care for self High risk of falls I certify that my clinical findings support that this patient is homebound because: Hx COPD- exertion dyspnea/weakness Unsteady gait/balance Unsafe to leave home unassisted Unable to use public transportation Beronica Kennedy PA-C Nov 15, 2017 12:05 pm
--- NOTE | 2017-11-15 13:41 | ECHRPT ---
Indication: a fib CONCLUSIONS Normal left ventricular size. Mitral annular calcification is present. [id number] mitral valve regurgitation. The aortic valve is not well visualized. Aortic valve sclerosis is present. Trace aortic valve regurgitation. There is mild tricuspid valve regurgitation. The estimated pulmonary arterial pressure is 23.4 mmHg. BP: / HR: Rhythm: MEASUREMENTS (Male / Female) Normal Values Technical Quality:Very technically difficult study 2D ECHO LV Diastolic Diameter PLAX 3.5 cm 4.2 - 5.9 / 3.9 - 5.3 cm LV Systolic Diameter PLAX 2.5 cm IVS Diastolic Thickness 1.1 cm 0.6 - 1.0 / 0.6 - 0.9 cm LVPW Diastolic Thickness 1.1 cm 0.6 - 1.0 / 0.6 - 0.9 cm LV Relative Wall Thickness 0.6 RV Internal Dim ED PLAX 2.6 cm M-MODE Aortic Root Diameter MM 2.6 cm LA Systolic Diameter MM 4.1 cm LA Ao Ratio MM 1.6 AV Cusp Separation MM 1.8 cm DOPPLER LV E' Lateral Velocity 12.9 cm/s LV E' Septal Velocity 8.6 cm/s TR Peak Velocity 183.0 cm/s TR Peak Gradient 13.4 mmHg Right Atrial Pressure 10.0 mmHg Pulmonary Artery Systolic Pressu 23.4 mmHg Right Ventricular Systolic Press 23.4 mmHg FINDINGS LEFT VENTRICLE Normal left ventricular size. The left ventricular systolic function is normal with an estimated ejection fraction in the range of 60-65%. RIGHT VENTRICLE Normal right ventricular size and systolic function. LEFT ATRIUM The left atrial size is normal. RIGHT ATRIUM The right atrial size is normal. ATRIAL SEPTUM Normal atrial septal thickness without atrial level shunting by limited color doppler interrogation. AORTA The aortic root and proximal ascending aorta are normal in size on limited imaging. MITRAL VALVE Mitral annular calcification is present. [id number] mitral valve regurgitation. AORTIC VALVE The aortic valve is not well visualized. Aortic valve sclerosis is present. Trace aortic valve regurgitation. TRICUSPID VALVE Structurally normal tricuspid valve. There is mild tricuspid valve regurgitation. The estimated pulmonary arterial pressure is 23.4 mmHg. PULMONARY VALVE No pulmonary valve regurgitation or stenosis. VESSELS The inferior vena cava is normal in size. PERICARDIUM No pericardial effusion. Eliot Quinones MD (Electronically Signed) Final Date:15 November 2017 13:40
[2017-11-15] MEDS ORDERED: METO25TA3 PO ×2 (14:52→17:45)
--- NOTE | 2017-11-15 15:10 | EKG ---
Date Performed: 11/14/2017 Time Performed: 12:07:12 PTAGE: 82 years EKG: ATRIAL FIBRILLATION WITH RAPID VENTRICULAR RESPONSE MODERATE ST DEPRESSION ABNORMAL ECG PREVIOUS TRACING 06/17/17 @ 11.09.49 Since previous tracing, no significant change noted DOCTOR: Eliot Quinones Interpretating Date/Time 11/15/2017 15:09:33
== END 2017-11-15 18:04 | disposition home or self-care (01) ==
LOC: NEPC 11:55 → NEDA 14:07 → NEPHCDU 15:36
PROVIDERS: ADMIT Internal Medicine; ATTEND Internal Medicine
DX: R55 Syncope and collapse (principal); I48.2 Chronic atrial fibrillation; R42 Dizziness and giddiness; E87.6 Hypokalemia; F32.9 Major depressive disorder, single episode, unspecified; I25.2 Old myocardial infarction; I25.10 Atherosclerotic heart disease of native coronary artery without angina pectoris; E78.5 Hyperlipidemia, unspecified; J44.9 Chronic obstructive pulmonary disease, unspecified; Z86.73 Personal history of transient ischemic attack (TIA), and cerebral infarction without residual deficits; E11.9 Type 2 diabetes mellitus without complications; E03.9 Hypothyroidism, unspecified; M79.7 Fibromyalgia; R53.1 Weakness; Z88.6 Allergy status to analgesic agent; K21.9 Gastro-esophageal reflux disease without esophagitis; Z79.01 Long term (current) use of anticoagulants; Z79.899 Other long term (current) drug therapy; R94.31 Abnormal electrocardiogram [ECG] [EKG]
CPT/HCPCS: 70450; 71045; 80048; 80053; 81001; 82550; 82552; 82948; 83735; 84100; 84484; 85025; 85610; 85730; 93005; 93306; 93880; 94150; 94640; 94664; 96360; 96361; 97162; 99285; G0378; G8987; G8988; J7030; J7040; J7644; P9612